=== PATIENT | female | born 1955 | race Caucasian/White ===

== ENCOUNTER 2017-11-23 13:36 | Observation (INO) | payer OTHER ==
--- NOTE | 2017-11-23 14:33 | ER Document Report ---
ED Medical Screen (RME) - General Chief Complaint: Chest Pressure Stated Complaint: LEFT SIDE CHEST PRESSURE Time Seen by Provider: 11/23/17 14:27 Notes: 62-year-old female patient sent to the emergency room by her primary care provider for evaluation of chest pressure discomfort. She states she has had pain in the lateral left chest off and on since January 2017. Sunday she was standing in her kitchen at home and felt a pressure sensation all over her body , got quite nauseated, shaky, and sweating. She went to lay down. Symptoms lasted about 15 minutes and then slowly resolved. Afterwards she got very tired and has been feeling tired for the the past few days now. 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 I have greeted and performed a rapid initial assessment of this patient. A comprehensive ED assessment and evaluation of the patient, analysis of test results and completion of the medical decision making process will be conducted by additional ED providers. TRAVEL OUTSIDE OF THE [place] IN LAST 30 DAYS: No - Related Data Allergies/Adverse Reactions: Penicillins Allergy (Severe, Verified 02/27/14 15:13) Seizures Past Medical History - Social History Chew tobacco use (# tins/day): No Frequency of alcohol use: None Drug Abuse: None - Past Medical History Cardiac Medical History: Reports: Hx Hypertension Pulmonary Medical History: Reports: Hx Asthma Renal/ Medical History: Denies: Hx Peritoneal Dialysis Past Surgical History: Reports: Hx Cholecystectomy, Hx Orthopedic Surgery - right knee, back Physical Exam - Vital signs Vitals: Temp Pulse Resp BP Pulse Ox 98.5 F 79 16 143/78 H 97 11/23/17 13:56 11/23/17 13:56 11/23/17 13:56 11/23/17 13:56 11/23/17 13:56 Course - Vital Signs Vital signs: Temp Pulse Resp BP Pulse Ox 98.5 F 79 16 143/78 H 97 11/23/17 13:56 11/23/17 13:56 11/23/17 13:56 11/23/17 13:56 11/23/17 13:56 Doctor's Discharge - Discharge Referrals: IDRIS SALINAS PA-C [Primary Care Provider] - Follow up as needed
[2017-11-23 15:28] LABS: ABSOLUTE BASOPHILS # (AUTO) 0.1 10^3/uL (0.0-0.2); ABSOLUTE EOSINOPHILS # (AUTO) 0.2 10^3/uL (0.0-0.6); ABSOLUTE LYMPHOCYTES (AUTO) 2.3 10^3/uL (0.5-4.7); ABSOLUTE MONOCYTES (AUTO) 0.7 10^3/uL (0.1-1.4); ABSOLUTE NEUT (AUTO) 5.7 10^3/uL (1.7-8.2); BASOPHILS % (AUTO) 1.3 % (0-2); EOSINOPHILS % (AUTO) 1.9 % (0-6); HEMATOCRIT 43.1 % (36.0-47.0); HEMOGLOBIN 14.3 g/dL (12.0-15.5); LYMPHOCYTES % (AUTO) 25.4 % (13-45); MEAN CORPUSCULAR HEMOGLOBIN 27.8 pg (27.0-33.4); MEAN CORPUSCULAR HGB CONC 33.3 g/dL (32.0-36.0); MEAN CORPUSCULAR VOLUME 84 fl (80-97); MONOCYTES % (AUTO) 7.6 % (3-13); PLATELET COUNT 329 10^3/uL (150-450); RED BLOOD COUNT 5.15 10^6/uL (3.72-5.28); RED CELL DISTRIBUTION WIDTH 13.9 % (11.5-14.0); SEGMENTED NEUTROPHILS % (AUTO) 63.8 % (42-78); TOTAL CELLS COUNTED % (AUTO) 100 %; WHITE BLOOD COUNT 8.9 10^3/uL (4.0-10.5)
--- NOTE | 2017-11-23 15:29 | RADIOLOGY REPORT (SQ) ---
EXAM DESCRIPTION: CHEST 2 VIEWS COMPLETED DATE/TIME: 11/23/2017 2:55 pm REASON FOR STUDY: Chest pain COMPARISON: 02/27/2014 EXAM PARAMETERS: NUMBER OF VIEWS: two views TECHNIQUE: Digital Frontal and Lateral radiographic views of the chest acquired. RADIATION DOSE: NA LIMITATIONS: none FINDINGS: LUNGS AND PLEURA: No opacities, masses or pneumothorax. No pleural effusion. MEDIASTINUM AND HILAR STRUCTURES: No masses or contour abnormalities. HEART AND VASCULAR STRUCTURES: Heart normal size. No evidence for failure. BONES: No acute findings. HARDWARE: None in the chest. OTHER: No other significant finding. IMPRESSION: NO ACUTE RADIOGRAPHIC FINDING IN THE CHEST. TECHNICAL DOCUMENTATION: JOB ID: [id number] [employer]- All Rights Reserved Reading location - IP/workstation name: [email or web address]
[2017-11-23 15:48] LABS: ALANINE AMINOTRANSFERASE 25 U/L (9-52); ALBUMIN 4.6 g/dL (3.5-5.0); ALKALINE PHOSPHATASE 98 U/L (38-126); ANION GAP 10 (5-19); ASPARTATE AMINO TRANSFERASE 46 U/L (14-36); BILIRUBIN,DIRECT 0.5 mg/dL (0.0-0.4); BILIRUBIN,TOTAL 0.7 mg/dL (0.2-1.3); BLOOD UREA NITROGEN 16 mg/dL (7-20); CARBON DIOXIDE 30 mmol/L (22-30); CHLORIDE 102 mmol/L (98-107); CREATINE KINASE 57 U/L (30-135); GLUCOSE 93 mg/dL (75-110); POTASSIUM 3.7 mmol/L (3.6-5.0); SODIUM 141.8 mmol/L (137-145); TOTAL PROTEIN 8.3 g/dL (6.3-8.2)
--- NOTE | 2017-11-23 15:49 | ER Document Report ---
ED Cardiac - General Chief Complaint: Chest Pressure Stated Complaint: LEFT SIDE CHEST PRESSURE Time Seen by Provider: 11/23/17 14:27 Mode of Arrival: Ambulatory Information source: Patient Notes: This is a 62-year-old female with a history of hypertension and asthma who is referred to the emergency room by the primary care doctor's office because of recurrent left chest ache which is been going on for the last few days. Patient does report an episode on Sunday where she experienced significant chest pressure, shortness of breath, diaphoresis and nausea for approximately half an hour which resolved spontaneously. Patient states she has felt fatigued after this event. She states since that time she is been having intermittent left chest ache. Currently she is pain-free. She does not smoke. She does have 3 brothers. Her youngest brother (age 48) did have a heart attack. Her mother of a heart attack at age 80. Her father had a heart attack in his 70s. TRAVEL OUTSIDE OF THE [place] IN LAST 30 DAYS: No - HPI Patient complains to provider of: Chest pain, Chest tightness, Shortness of breath Use of: denies: Alcohol, Amphetamines, Bath salts, Caffeine, Cocaine, Decongestants, Other Was the onset of pain: Gradual Is the pain a: New problem Chest pain location: Substernal Quality of pain: Intermittent Chest pain radiation location: None Severity now: None Severity at worst: Moderate Pain level currently: Denies Chest pain precipitating factors: At Rest Cardiac risk factors: Hypertension Positive cardiac history: No Associated symptoms: Diaphoresis, Nausea/vomiting, Shortness of breath Exacerbated by: Denies Relieved by: Rest Similar symptoms previously: No Recently seen / treated by doctor: No - Related Data Allergies/Adverse Reactions: Penicillins Allergy (Severe, Verified 02/27/14 15:13) Seizures Past Medical History - General Information source: Patient - Social History Smoking Status: Never Smoker Cigarette use (# per day): No Chew tobacco use (# tins/day): No Frequency of alcohol use: None Drug Abuse: None Lives with: Spouse/Significant other Family History: Reviewed & Not Pertinent Patient has suicidal ideation: No Patient has homicidal ideation: No - Past Medical History Cardiac Medical History: Reports: Hx Hypertension Pulmonary Medical History: Reports: Hx Asthma Renal/ Medical History: Denies: Hx Peritoneal Dialysis Past Surgical History: Reports: Hx Cholecystectomy, Hx Orthopedic Surgery - right knee, back Review of Systems - Review of Systems Constitutional: denies: Chills, Fever EENT: No symptoms reported Cardiovascular: See HPI Respiratory: No symptoms reported Gastrointestinal: No symptoms reported Genitourinary: No symptoms reported Female Genitourinary: No symptoms reported Musculoskeletal: No symptoms reported Skin: No symptoms reported Hematologic/Lymphatic: No symptoms reported Neurological/Psychological: No symptoms reported Physical Exam - Vital signs Vitals: Temp Pulse Resp BP Pulse Ox 98.5 F 79 16 143/78 H 97 11/23/17 13:56 11/23/17 13:56 11/23/17 13:56 11/23/17 13:56 11/23/17 13:56 Notes: Physical exam: GENERAL: She is alert and oriented x3, no acute distress. HEAD: Atraumatic, normocephalic. EYES: Pupils equal round and reactive to light, extraocular movements intact, sclera anicteric, conjunctiva are normal. ENT: TMs normal, nares patent, oropharynx clear without exudates. Moist mucous membranes. NECK: Normal range of motion, supple without obvious mass or JVD. LUNGS: Breath sounds clear to auscultation bilaterally and equal. No wheezes rales or rhonchi. HEART: Regular rate and rhythm without murmurs, rubs or gallops. ABDOMEN: Soft, normoactive bowel sounds. No tenderness to palpation. No guarding, no rebound. No masses appreciated. EXTREMITIES: Normal range of motion, no pitting or edema. No clubbing or cyanosis. NEUROLOGICAL: Cranial nerves II through XII grossly intact. Normal speech, moving all extremities. PSYCH: Normal mood, normal affect. SKIN: Warm, Dry, normal turgor, no rashes or lesions noted. Course - Vital Signs Vital signs: Temp Pulse Resp BP Pulse Ox 98.1 F 79 15 138/74 H 99 11/23/17 17:09 11/23/17 13:56 11/23/17 17:09 11/23/17 17:09 11/23/17 17:09 - Laboratory Result Diagrams: 11/23/17 15:17 11/23/17 15:17 Laboratory results interpreted by me: 11/23/17 11/23/17 14:40 15:17 Direct Bilirubin 0.5 H AST 46 H Total Protein 8.3 H Urine Ketones TRACE H Urine Ascorbic Acid 40 H - Diagnostic Test Radiology reviewed: Image reviewed, Reports reviewed - Chest x-ray shows no infiltrates - EKG Interpretation by Me Rate: Normal Rhythm: NSR Discharge - Discharge Clinical Impression: Chest pain Qualifiers: Chest pain type: unspecified Qualified Code(s): R07.9 - Chest pain, unspecified Condition: Stable Disposition: ELOPED Admitting Provider: Hospitalist - Dr Cullen Unit Admitted: Telemetry
[2017-11-23 16:12] LABS: CREATINE KINASE MB 1.75 ng/mL (<4.55)
[2017-11-23 16:13] LABS: TROPONIN I < 0.012 ng/mL
[2017-11-23 16:32] LABS: APPEARANCE,URINE SLIGHTLY-CLOUDY; BILIRUBIN,URINE NEGATIVE (NEGATIVE); COLOR,URINE YELLOW; GLUCOSE, URINE NEGATIVE (NEGATIVE); KETONES,URINE TRACE mg/dL (NEGATIVE); LEUKOCYTE ESTERASE,URINE NEGATIVE (NEGATIVE); NITRITE,URINE NEGATIVE (NEGATIVE); PROTEIN,URINE NEGATIVE (NEGATIVE); URINE SPECIFIC GRAVITY 1.015; UROBILINOGEN,URINE NEGATIVE mg/dL (<2.0)
--- NOTE | 2017-11-23 17:29 | PDOC H&P ---
History of Present Illness Admission Date/PCP: 11/23/17 16:56 IDRIS SALINAS PA-C History of Present Illness: KAREN MARTINEZ is a 62 year old female with a history of asthma and hypertension who says she has been having episodes of chest pain off and on all week. She said she had an episode on Sunday where she was not doing anything particularly strenuous but she said she noticed that she all of a sudden felt like she had what she described as a pressure over her entire body, and it almost made her vomit and defecate simultaneously. It lasted for about 15 minutes then spontaneously resolved. She said she felt like she should have called 911 at that time but for some reason she decided not to. She says off and on all week she has had what she describes as a aching sensation on her left lateral chest in the mid-axillary line. She will feel it for up to a half an hour at a time and then it goes away. It is not associated with activity. It does not get better with rest. She has had no shortness of breath. She has had nothing that sounds like diaphoresis. She did not have nausea with these subsequent episodes. She said she went to her primary care provider who did an EKG and while it did not look abnormal it did not look exactly the same as her last EKG and so because of that she was sent to the emergency department. She has not had any pain here. She has had no signs of ischemia as part of her workup in the ER. She does not smoke and says she never has. 1 of her brothers had an UT in his late 40s. A couple years ago she had a cardiac workup including a stress test that was negative. She was told at that time that it was due to anxiety. Past Medical History Cardiac Medical History: Reports: Hypertension Pulmonary Medical History: Reports: Asthma Past Surgical History Past Surgical History: Reports: Cholecystectomy, Orthopedic Surgery - right knee , back Social History Smoking Status: Unknown if Ever Smoked Family History Family History: CAD Parental Family History Reviewed: Yes Children Family History Reviewed: NA Sibling(s) Family History Reviewed.: Yes Medication/Allergy Allergies/Adverse Reactions: Penicillins Allergy (Severe, Verified 02/27/14 15:13) Seizures Review of Systems All systems: reviewed and no additional remarkable complaints except as stated - 10 point review of systems was conducted with the patient was negative except as noted above in the HPI Physical Exam Vital Signs: Temp Pulse Resp BP Pulse Ox 98.5 F 79 16 143/78 H 97 11/23/17 13:56 11/23/17 13:56 11/23/17 13:56 11/23/17 13:56 11/23/17 13:56 General appearance: PRESENT: no acute distress, cooperative, morbidly obese Head exam: PRESENT: atraumatic, normocephalic Eye exam: PRESENT: EOMI, PERRLA. ABSENT: conjunctival injection, nystagmus, scleral icterus Ear exam: PRESENT: normal external ear exam Mouth exam: PRESENT: moist, neck supple Throat exam: PRESENT: post pharyngeal erythema Neck exam: PRESENT: full ROM. ABSENT: carotid bruit, JVD, lymphadenopathy, tenderness, thyromegaly Respiratory exam: PRESENT: clear to auscultation myrtle, symmetrical, unlabored. ABSENT: accessory muscle use, chest wall tenderness, prolonged expiratory phas, rales, rhonchi, stridor, tachypnea, wheezes Cardiovascular exam: PRESENT: RRR, +S1, +S2. ABSENT: diastolic murmur, systolic murmur Pulses: PRESENT: normal radial pulses, normal dorsalis pedis pul Vascular exam: PRESENT: normal capillary refill GI/Abdominal exam: PRESENT: normal bowel sounds, soft. ABSENT: distended, guarding, rebound, tenderness Rectal exam: PRESENT: deferred Extremities exam: PRESENT: full ROM. ABSENT: joint swelling, pedal edema Musculoskeletal exam: PRESENT: ambulatory, normal inspection. ABSENT: deformity Neurological exam: PRESENT: alert, awake, oriented to person, oriented to place , oriented to time, oriented to situation, CN II-XII grossly intact. ABSENT: motor sensory deficit Psychiatric exam: PRESENT: appropriate affect, normal mood Skin exam: PRESENT: dry, warm Results Impressions: Chest X-Ray 11/23/17 14:31 IMPRESSION: NO ACUTE RADIOGRAPHIC FINDING IN THE CHEST. Assessment & Plan - Diagnosis (1) Chest pain Qualifiers: Chest pain type: unspecified Qualified Code(s): R07.9 - Chest pain, unspecified Is this a current diagnosis for this admission?: Yes Plan: Serial cardiac enzymes. Telemetry monitoring overnight. Plan for a stress test in the morning. Given aspirin. Check a fasting lipid panel and hemoglobin A1c. - Time Time Spent: 50 to 70 Minutes - Inpatient Certification Based on my medical assessment, after consideration of the patient's comorbidities, presenting symptoms, or acuity I expect that the services needed warrant INPATIENT care.: No I certify that my determination is in accordance with my understanding of Medicare's requirements for reasonable and necessary INPATIENT services [42 CFR 412.3e].: No
[2017-11-23 17:43] VITALS: BP 138/74
--- NOTE | 2017-11-23 17:56 | PDOC DISCHARGE SUMMARY ---
General - Admit/Disc Date/PCP Admission Date/Primary Care Provider: 11/23/17 16:56 IDRIS SALINAS PA-C Discharge Date: 11/23/17 - Discharge Diagnosis (1) Chest pain Is this a current diagnosis for this admission?: Yes Summary: owen SHETH from ER before she could be admitted to the floor History of Present Illness History of Present Illness: KAREN MARTINEZ is a 62 year old female with a history of asthma and hypertension who says she has been having episodes of chest pain off and on all week. She said she had an episode on Sunday where she was not doing anything particularly strenuous but she said she noticed that she all of a sudden felt like she had what she described as a pressure over her entire body, and it almost made her vomit and defecate simultaneously. It lasted for about 15 minutes then spontaneously resolved. She said she felt like she should have called 911 at that time but for some reason she decided not to. She says off and on all week she has had what she describes as a aching sensation on her left lateral chest in the mid-axillary line. She will feel it for up to a half an hour at a time and then it goes away. It is not associated with activity. It does not get better with rest. She has had no shortness of breath. She has had nothing that sounds like diaphoresis. She did not have nausea with these subsequent episodes. She said she went to her primary care provider who did an EKG and while it did not look abnormal it did not look exactly the same as her last EKG and so because of that she was sent to the emergency department. She has not had any pain here. She has had no signs of ischemia as part of her workup in the ER. She does not smoke and says she never has. 1 of her brothers had an MT in his late 40s. A couple years ago she had a cardiac workup including a stress test that was negative. She was told at that time that it was due to anxiety. Hospital Course Hospital Course: owen SHETH from the ER after I completed her H&P, never came up to the floor for observation or further evaluation Physical Exam Vital Signs: Temp Pulse Resp BP Pulse Ox 98.1 F 79 15 138/74 H 99 11/23/17 17:09 11/23/17 13:56 11/23/17 17:09 11/23/17 17:09 11/23/17 17:09 Results Impressions: Chest X-Ray 11/23/17 14:31 IMPRESSION: NO ACUTE RADIOGRAPHIC FINDING IN THE CHEST. Qualifiers - * PATIENT BEING DISCHARGED WITH ANY OF THE FOLLOWING DIAGNOSIS: No
[2017-11-24] MEDS ORDERED: ASPIRIN 325 MG TABLET PO SCH (10:00)
--- NOTE | 2017-11-24 19:26 | EKG REPORT ---
SEVERITY:- BORDERLINE ECG - SINUS RHYTHM LVH BY VOLTAGE : Confirmed by: Mendez Jasso 24-Nov-2017 19:25:31
== END 2017-11-23 17:55 | disposition left against medical advice (07) ==
LOC: ER 13:36 → EH 16:56
PROVIDERS: ADMIT Emergency Medicine; ATTEND Emergency Medicine
DX: R07.89 Other chest pain (principal); R06.02 Shortness of breath; R61 Generalized hyperhidrosis; R11.0 Nausea; E66.9 Obesity, unspecified; R53.83 Other fatigue; R25.8 Other abnormal involuntary movements; I25.2 Old myocardial infarction; Z53.21 Procedure and treatment not carried out due to patient leaving prior to being seen by health care provider; Z82.49 Family history of ischemic heart disease and other diseases of the circulatory system; Z90.49 Acquired absence of other specified parts of digestive tract; Z68.36 Body mass index [BMI] 36.0-36.9, adult
CPT/HCPCS: 36415; 71046; 80053; 81001; 82550; 82553; 84484; 85025; 93005; 93010; 99285